=== PATIENT | female | born 1975 | race Caucasian/White ===

== ENCOUNTER 2018-08-09 01:11 | Emergency (ER) | payer BC, MEDICARE ==
[2018-08-09] MEDS ORDERED: Sodium Chloride 0.9% 100 ML ONE (01:45)
[2018-08-09] MEDS ORDERED: Adacel (T-DAP) 0.5 ML VIAL ONE (01:45)
[2018-08-09] MEDS ORDERED: cefTRIAXone\\ROCEPHIN 1 GM VIAL ONE (01:45)
[2018-08-09] MEDS ORDERED: Morphine 4 MG/ML VIAL ONE (01:58)
[2018-08-09] MEDS ORDERED: Ketorolac Tromethamine 30 MG/ML VIAL ONE (01:58)
[2018-08-09 02:07] LABS: #Basophils 0.1 thou/uL (0.0-0.2); #Eosinphils 0.2 thou/uL (0.0-0.7); #Lymphocytes 1.8 thou/uL (1.20-3.40); #Monocytes 0.9 thou/uL (0.11-0.59); %Basophils 0.4 % (0.0-1.0); %Eosinophils 1.4 % (0.0-10.0); %Lymphocytes 12.8 % (21.0-51.0); %Monocytes 6.1 % (0.0-10.0); %Neutrophils 79.3 % (42.0-75.0); Hemoglobin 12.4 g/dL (12.0-16.0); Mean Corpuscular HGB CONC 34.2 g/dL (32.0-36.0); Mean Corpuscular Hemoglobin 30.5 pg (27.0-31.0); Mean Corpuscular Volume 89.1 fL (78.0-98.0); Mean Platelet Volume 9.2 fL (7.4-10.4); Platelet Count 296 thou/uL (130-400); RBC Distribution Width 12.2 % (11.5-14.5); Red Blood Cell (RBC) Count 4.07 mill/uL (4.20-5.40); White Blood Cell (WBC) Count 13.9 thou/uL (4.8-10.8)
[2018-08-09] MEDS ORDERED: Lidocaine 2% Jelly 5 ML TUBE ONE (02:12)
[2018-08-09] MEDS ORDERED: Lidocaine 1% w/Epinephrine 1:100K 20 ML VIAL ONE (02:12)
[2018-08-09 02:30] LABS: Acetaminophen Less than 6.0 mcg/mL (10.0-30.0); Alcohol 53 mg/dL (Less than 10); Salicylate Less than 8.0 mg/dL (15.0-30.0)
[2018-08-09 02:31] LABS: ALT (SGPT) 17 U/L (8-55); AST (SGOT) 24 U/L (5-34); Alkaline Phosphatase 91 U/L (40-150); Anion Gap 13 mmol/L (10-20); BUN (Urea Nitrogen) 8 mg/dL (7.0-18.7); Bilirubin, Total 0.2 mg/dL (0.2-1.2); Calc. Creatinine Clearance 0 mL/min (70-130); Calcium 9.4 mg/dL (7.8-10.44); Carbon Dioxide 26 mmol/L (22-29); Chloride 103 mmol/L (98-107); Estimated GFR-MDRD 76; Globulin 3.1 g/dL (2.4-3.5); Glucose 97 mg/dL (70-105); Lipase 33 U/L (8-78); Potassium 3.5 mmol/L (3.5-5.1); Protein, Total 7.1 g/dL (6.0-8.3); Sodium 138 mmol/L (136-145)
[2018-08-09 02:36] LABS: CKMB 2.5 ng/mL (0-6.6); Troponin I Less than 0.010 ng/mL (< 0.028)
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
[2018-08-09] MEDS ORDERED: Iopamidol 370 76% 100 ML VIAL ONE (16:34)
== END 2018-08-09 04:07 | disposition home or self-care (01) ==
LOC: ERS 01:11
DX: S06.0X9A Concussion with loss of consciousness of unspecified duration, initial encounter (principal); S01.01XA Laceration without foreign body of scalp, initial encounter; F31.9 Bipolar disorder, unspecified; Z79.899 Other long term (current) drug therapy; V49.9XXA Car occupant (driver) (passenger) injured in unspecified traffic accident, initial encounter
CPT/HCPCS: 12004; 36415; 70450; 71045; 74177; 80053; 80307; 82553; 83690; 84484; 85025; 90471; 90715; 93005; 96365; 96366; 96375; G0390; J0696; J1885; J2001; J2270; J7050

== ENCOUNTER 2018-08-12 11:27 | Emergency (ER) | payer MEDICARE, BC | END 2018-08-12 12:44 | disposition home or self-care (01) | LOC: ERS 11:27 | DX: S01.01XD Laceration without foreign body of scalp, subsequent encounter (principal); Z79.899 Other long term (current) drug therapy; V49.9XXD Car occupant (driver) (passenger) injured in unspecified traffic accident, subsequent encounter | CPT/HCPCS: 99282 ==

== ENCOUNTER 2018-08-20 10:12 | Emergency (ER) | payer MEDICARE, BC ==
[2018-08-20] MEDS ORDERED: Bacitracin Zinc 1 Packet ONE (10:43)
== END 2018-08-20 11:04 | disposition home or self-care (01) ==
LOC: ERS 10:12
DX: S01.01XD Laceration without foreign body of scalp, subsequent encounter (principal); F31.9 Bipolar disorder, unspecified

== ENCOUNTER 2018-08-25 13:42 | Emergency (ER) | payer MEDICARE, BC ==
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
== END 2018-08-25 14:20 | disposition home or self-care (01) ==
LOC: ERS 13:42
DX: S01.01XD Laceration without foreign body of scalp, subsequent encounter (principal); X58.XXXD Exposure to other specified factors, subsequent encounter
CPT/HCPCS: 70260

== ENCOUNTER 2020-11-18 09:02 | Emergency (ER) | payer MEDICARE, BC ==
[2020-11-18] MEDS ORDERED: Ketorolac Tromethamine 30 MG/ML VIAL ONE (09:31)
== END 2020-11-18 11:07 | disposition home or self-care (01) ==
LOC: ERS 09:02
DX: M17.12 Unilateral primary osteoarthritis, left knee (principal); Z79.899 Other long term (current) drug therapy
CPT/HCPCS: 96372; J1885